=== PATIENT | male | born 1985 ===

== ENCOUNTER 2021-10-04 21:44 | Emergency (ER) | payer SELFPAY ==
[2021-10-05] MEDS ORDERED: LORazepam 2 MG/ML VIAL ONE (03:00)
[2021-10-05] MEDS ORDERED: HALOPERIDOL LACTATE 5 MG/1 ML INJ ONE (03:00)
[2021-10-05] MEDS ORDERED: diphenhydrAMINE 50 MG/ML VIAL ONE (03:00)
[2021-10-05] MEDS ORDERED: diphenhydrAMINE 50 MG/ML VIAL IM STA (03:01)
[2021-10-05] MEDS: LORazepam 2 MG/ML VIAL IM PRN ×2 (03:05→10:29)
[2021-10-05] MEDS: HALOPERIDOL LACTATE 5 MG/1 ML INJ IM PRN ×2 (03:05→10:29)
--- NOTE | 2021-10-05 03:05 | Emergency Department Report ---
ED General Adult HPI - General Chief complaint: Psych Stated complaint: Leave me alone Time Seen by Provider: 10/05/21 03:00 Source: patient, RN notes reviewed Mode of arrival: Ambulatory Limitations: Other (Acute psychosis) - History of Present Illness Initial comments: The patient was evaluated in the emergency department for symptoms described in the history of present illness. He/she was evaluated in the context of the global COVID-19 pandemic, which necessitated consideration that the patient might be at risk for infection with the virus that causes COVID-19. Institutional protocols and algorithms that pertain to the evaluation of patients at risk for COVID-19 are in a state of rapid change based on information released by regulatory bodies including the CDC and federal and state organizations. These policies and algorithms were followed during the patient's care in the emergency department. Please note that these policies, procedures and recommendations changed on a rapid basis. This is a 36-year-old gentleman. He presents to the ER acutely psychotic. He is saying "f*uck everything." He denies physical pain. He does not answer questions about homicidality or suicidality. He will not answer questions about hallucinations. He is disorganized, rambling, agitated, and appears to be responding to internal stimuli. He is not accompanied by friends or family at this time for collateral information or additional information. Patient is psychotic, and not able to describe qualitative nature of symptoms - Related Data Allergies Allergy/AdvReac Type Severity Reaction Status Date / Time No Known Allergies Allergy Verified 10/05/21 01:08 ED Review of Systems ROS: Stated complaint: MENTAL EVAL Other details as noted in HPI ED Physical Exam - General Limitations: Other (Acute psychosis) General appearance: other (Patient is agitated) - Head Head exam: Present: atraumatic, normocephalic - Eye Eye exam: Present: normal appearance, EOMI. Absent: nystagmus - ENT ENT exam: Present: normal exam, normal orophraynx, mucous membranes moist, normal external ear exam - Neck Neck exam: Present: normal inspection, full ROM. Absent: tenderness, meningismus - Respiratory Respiratory exam: Present: normal lung sounds bilaterally. Absent: respiratory distress, wheezes, rales, rhonchi, stridor, decreased breath sounds - Cardiovascular Cardiovascular Exam: Present: regular rate, normal rhythm, normal heart sounds. Absent: bradycardia, tachycardia, irregular rhythm, systolic murmur, diastolic murmur, rubs, gallop - GI/Abdominal GI/Abdominal exam: Present: soft. Absent: distended, tenderness, guarding, rebound, rigid, pulsatile mass - Rectal Rectal exam: Present: deferred - Extremities Exam Extremities exam: Present: normal inspection, full ROM, other (2+ pulses noted in the bilateral upper and lower extremities. There is no palpable cord. negative Homans sign. Muscular compartments are soft. The pelvis is stable.). Absent: pedal edema, calf tenderness - Back Exam Back exam: Present: normal inspection, full ROM. Absent: tenderness, CVA tenderness (R), CVA tenderness (L), paraspinal tenderness, vertebral tenderness - Neurological Exam Neurological exam: Present: alert, normal gait, other (There is no facial droop. The tongue is midline. EOMI. 5 out of 5 strength in 4 extremities) - Psychiatric Psychiatric exam: Present: agitated - Skin Skin exam: Present: warm, dry, intact, normal color. Absent: rash ED Course Vital Signs 10/05/21 10/05/21 01:05 03:37 Temperature 98.2 F Pulse Rate 112 H Respiratory 20 Rate Blood Pressure 143/89 O2 Sat by Pulse 98 100 Oximetry - Reevaluation(s) Reevaluation #1: 10/05/21 04:20 Differential diagnosis, include but not limited to: Psychosis, medical clearance for psychiatric placement, electrolyte derangement, thyroid derangement Assessment and plan: 36-year-old gentleman, with reassuring vital signs with exception of minimal tachycardia which is improving, who is presenting with acute psychosis. His physical examination is noncontributory. Laboratory studies are unremarkable. He is placed on a 1013. UA, drug screen, and COVID swab pending. The emergency room will follow along as the patient provides these. A psychiatric consultation is requested. At this point in time, the patient does not appear to have an immediate medical contraindication to psychiatric admission, evaluation, consultation and placement ED Medical Decision Making - Lab Data Result diagrams: 10/05/21 03:09 10/05/21 03:09 Vital Signs 10/05/21 10/05/21 01:05 03:37 Temperature 98.2 F Pulse Rate 112 H Respiratory 20 Rate Blood Pressure 143/89 O2 Sat by Pulse 98 100 Oximetry Lab Results 10/05/21 10/05/21 10/05/21 Range/Units 03:09 03:09 03:09 WBC 6.6 (4.5-11.0) K/mm3 RBC 4.61 (3.65-5.03) M/mm3 Hgb 13.2 (11.8-15.2) gm/dl Hct 40.7 (35.5-45.6) % MCV 88 (84-94) fl MCH 29 (28-32) pg MCHC 33 (32-34) % RDW 14.4 (13.2-15.2) % Plt Count 245 (140-440) K/mm3 Sodium 139 (137-145) mmol/L Potassium 3.8 (3.6-5.0) mmol/L Chloride 102.2 (98-107) mmol/L Carbon Dioxide 27 (22-30) mmol/L Anion Gap 14 mmol/L BUN 15 (9-20) mg/dL Creatinine 0.9 (0.8-1.3) mg/dL Estimated GFR > 60 ml/min BUN/Creatinine Ratio 17 % Glucose 128 H (75-100) mg/dL Calcium 9.2 (8.4-10.2) mg/dL Total Bilirubin 0.70 (0.1-1.2) mg/dL AST 14 (5-40) units/L ALT 11 (7-56) units/L Alkaline Phosphatase 64 (35-129) units/L Total Protein 7.6 (6.3-8.2) g/dL Albumin 4.6 (3.9-5) g/dL Albumin/Globulin Ratio 1.5 % TSH 0.979 (0.270-4.200) mlU/mL Salicylates (2.8-20.0) mg/dL Acetaminophen (10.0-30.0) ug/mL Valproic Acid (50-100) ug/mL [place] (0.0-1.2) mmol/L Plasma/Serum Alcohol (0-0.07) % 10/05/21 10/05/21 10/05/21 Range/Units 03:09 03:09 03:09 WBC (4.5-11.0) K/mm3 RBC (3.65-5.03) M/mm3 Hgb (11.8-15.2) gm/dl Hct (35.5-45.6) % MCV (84-94) fl MCH (28-32) pg MCHC (32-34) % RDW (13.2-15.2) % Plt Count (140-440) K/mm3 Sodium (137-145) mmol/L Potassium (3.6-5.0) mmol/L Chloride (98-107) mmol/L Carbon Dioxide (22-30) mmol/L Anion Gap mmol/L BUN (9-20) mg/dL Creatinine (0.8-1.3) mg/dL Estimated GFR ml/min BUN/Creatinine Ratio % Glucose (75-100) mg/dL Calcium (8.4-10.2) mg/dL Total Bilirubin (0.1-1.2) mg/dL AST (5-40) units/L ALT (7-56) units/L Alkaline Phosphatase (35-129) units/L Total Protein (6.3-8.2) g/dL Albumin (3.9-5) g/dL Albumin/Globulin Ratio % TSH (0.270-4.200) mlU/mL Salicylates < 0.3 L (2.8-20.0) mg/dL Acetaminophen 5.0 L (10.0-30.0) ug/mL Valproic Acid < 2.8 L (50-100) ug/mL [place] 0.1 (0.0-1.2) mmol/L Plasma/Serum Alcohol < 0.01 (0-0.07) % Critical care attestation.: If time is entered above; I have spent that time in minutes in the direct care of this critically ill patient, excluding procedure time. ED Disposition Clinical Impression: Acute psychosis, Medical clearance for psychiatric admission Disposition: [address] [place] [address] Is pt being admited?: No Does the pt Need Aspirin: No Condition: Good
[2021-10-05 03:26] LABS: Hematocrit 40.7 % (35.5-45.6); Hemoglobin 13.2 gm/dl (11.8-15.2); Mean Corpuscular HGB Conc 33 % (32-34); Mean Corpuscular Volume 88 fl (84-94); Platelet Count 245 K/mm3 (140-440); Red Blood Count 4.61 M/mm3 (3.65-5.03); Red Cell Distribution Width 14.4 % (13.2-15.2)
[2021-10-05 03:45] LABS: Alanine Aminotransferase 11 units/L (7-56); Albumin 4.6 g/dL (3.9-5); BUN/Creatinine Ratio 17; Blood Urea Nitrogen 15 mg/dL (9-20); Calcium 9.2 mg/dL (8.4-10.2); Hemolysis Index 6
[2021-10-05 08:57] LABS: Benzodiazepines Screen,Urine Negative; Methadone Screen,Urine Negative; Opiate Screen,Urine Negative
[2021-10-05 09:10] LABS: Amphetamine Screen,Urine Positive; Cannabinoid Screen,Urine Positive; Cocaine Screen,Urine Positive
[2021-10-05 09:19] LABS: Mucus,Urine 3+ /HPF
[2021-10-05 09:33] LABS: Bilirubin,Urine Negative (Negative); Blood,Urine Negative (Negative); Color,Urine Yellow (Yellow); Protein,Urine <30 mg dL mg/dL (Negative); Urobilinogen,Urine < 2.0 mg/dL (<2.0)
--- NOTE | 2021-10-05 12:30 | Event Note ---
Date: 10/05/21 Pt's chart reviewed. VSS. Pt assessesed by me independently. He is calm, cooperative. He denies any complaints at this time. He does not appear to be in any extremis.
--- NOTE | 2021-10-05 14:48 | Consultation ---
History of Present Illness - Reason for Consult Consult date: 10/05/21 Reason for consult: MHE - History of Present Psychiatric Illness HPI 36 Year old male seen today in the ER. Patient states that " I was lied to" " Give me my meds and let me go back to [place]". Patient observed to be hyper verbal and aggressive towards staff. Patient denies any SI/HI/AVH . Patient has a past dx of Schizophrenia and admits to having been off his medications for the past month.Patients lab shows illicit drugs. Patient had to be given PRN while i was there. Patient will be admitted for inpatient psychiatry evaluation and medication adjustment. PAST PSYCHIATRIC HISTORY: Diagnoses: Schizophrenia Suicide attempts or Self-harm behavior: Yes Prior psychiatric hospitalizations; Yes Substance Abuse history:Yes Previous psychiatric medications tried: Yes Outpatient treatment: PAST MEDICAL HISTORY: Family Psychiatric History None reported or documented SOCIAL HISTORY Marital Status:Single Living Arrangements: With Aunt Employment Status: disability Access to guns/weapons: Denies Education: History of Abuse: Legal History: REVIEW OF SYSTEMS Constitutional: Negative for weight loss ENT: Negative for stridor Respiratory: Negative for cough or hemoptysis All other systems reviewed and are negative Diagnoses:Schizophrenia Treatment Plan Patient will be admitted for inpatient psychiatric evaluation, medication adjustment and close monitoring The patient's behavior, mood, sleep and appetite will be closely monitored. Patient will be enrolled in individual and group therapeutic sessions and encouraged to attend. Patient will be provided with a safe and structured environment. Patient's physical health needs will be addressed by the Hospitalist. Hospita list Consulted Labs including CBC, CMP, Lipid profile and Hemoglobin A1C ordered Social Assessment will be completed and the It Manager will work with patient and family to ensure a suitable and safe disposition Medication adjustment will be made as clinically indicated Usual Wellness Restorationism/Preservation: - Start Trazodone 50 mg po QHS The patient agreed on the treatment plan, understood the risk, benefit, alternative treatment, potential consequence of no treatment, and gave informed consent. Medications and Allergies Allergies Allergy/AdvReac Type Severity Reaction Status Date / Time No Known Allergies Allergy Verified 10/05/21 01:08 Active Meds: Active Medications Haloperidol Lactate (Haloperidol Lactate 5 Mg/1 Ml Inj) 5 mg IM Q6HR PRN PRN Reason: Agitation Last Admin: 10/05/21 10:29 Dose: 5 mg Lorazepam (Lorazepam 2 Mg/Ml Vial) 2 mg IM Q4HR PRN PRN Reason: Agitation Last Admin: 10/05/21 10:29 Dose: 2 mg Mental Status Exam - Vital signs Last Vital Signs Temp 98.0 F 10/05/21 07:39 Pulse 78 10/05/21 07:39 Resp 18 10/05/21 07:39 BP 119/75 10/05/21 07:39 Pulse Ox 100 10/05/21 10:33 Results Result Diagrams: 10/05/21 03:09 10/05/21 03:09 Abnormal lab results 10/05/21 10/05/21 10/05/21 Range/Units 03:09 03:09 03:09 Glucose 128 H (75-100) mg/dL Salicylates < 0.3 L (2.8-20.0) mg/dL Acetaminophen 5.0 L (10.0-30.0) ug/mL Valproic Acid < 2.8 L (50-100) ug/mL All other labs normal.
[2021-10-05] MEDS: traZODone 50 MG TAB PO SCH (22:08)
[2021-10-06] MEDS: HALOPERIDOL LACTATE 5 MG/1 ML INJ IM PRN (07:45)
--- NOTE | 2021-10-06 12:02 | Event Note ---
Date: 10/06/21 S: Patient became verbally aggressive and required Haldol. Otherwise no events reported overnight O: Vital Signs - 8 hr 10/06/21 10/06/21 06:16 08:57 Temperature 97.7 F Pulse Rate 86 Respiratory 18 Rate Blood Pressure 140/100 [Left] O2 Sat by Pulse 98 99 Oximetry A: Schizophrenia P: Inpatient psych/1013
--- NOTE | 2021-10-06 12:54 | Progress Note ---
Subjective - Reason for Consult Reason for consult: MHE - Chief Complaint Chief complaint: Patient seen today. Patient states that he "needs my meds".Patient still hyper verbal and confused. Patient states that he slept okay and his appetite is good. Patient currently denies any SI/HI/AVH at this time. Patient waiting on placement. Will continue to follow. Mental Status Exam - Vital signs Last Vital Signs Temp 97.7 F 10/06/21 08:57 Pulse 86 10/06/21 08:57 Resp 18 10/06/21 08:57 BP 140/100 10/06/21 08:57 Pulse Ox 99 10/06/21 12:20
[2021-10-06] MEDS: LORazepam 2 MG/ML VIAL IM PRN (13:50)
[2021-10-06] MEDS: traZODone 50 MG TAB PO SCH (21:57)
[2021-10-07] MEDS: HALOPERIDOL LACTATE 5 MG/1 ML INJ IM PRN (08:11)
--- NOTE | 2021-10-07 12:33 | Event Note ---
Date: 10/07/21 S: Patient continues to get upset and verbally abusive stating that he wants to leave the hospital. Patient required medication. Patient was tachycardic while he was upset. O: Vital Signs - 8 hr 10/07/21 09:52 Temperature 98.5 F Pulse Rate 123 H Respiratory 18 Rate Blood Pressure 145/105 [Left] O2 Sat by Pulse 98 Oximetry E: Schizophrenia P: Awaiting inpatient psych
--- NOTE | 2021-10-07 15:57 | Progress Note ---
Subjective - Reason for Consult Reason for consult: MHE - Chief Complaint Chief complaint: DATE SEEN: 10/07/2021 patient seen today. Patient states that he is "stable, just need my meds". Patient still verbally aggressive towards staff and was given prn today. Patient denies SI/HI/AVH at this time. Patient seen today. Patient states that he "needs my meds".Patient still hyper verbal and confused. Patient states that he slept okay and his appetite is good. Patient currently denies any SI/HI/AVH at this time. Patient waiting on placement. Will continue to follow. Mental Status Exam - Vital signs Last Vital Signs Temp 98.5 F 10/07/21 09:52 Pulse 123 H 10/07/21 09:52 Resp 18 10/07/21 09:52 BP 145/105 10/07/21 09:52 Pulse Ox 98 10/07/21 09:52
[2021-10-07] MEDS: traZODone 50 MG TAB PO SCH (22:31)
--- NOTE | 2021-10-08 10:50 | Progress Note ---
Subjective - Reason for Consult Reason for consult: MHE - Chief Complaint Chief complaint: DATE SEEN: 10/08/2021 Patient seen today. Patient states that he is feeling okay. Patient denies any SI/HI/AVH at this time. Patient will be discharged from psych point of view and 1013 rescinded. DATE SEEN: 10/07/2021 patient seen today. Patient states that he is "stable, just need my meds". Patient still verbally aggressive towards staff and was given prn today. Patient denies SI/HI/AVH at this time. Patient seen today. Patient states that he "needs my meds".Patient still hyper verbal and confused. Patient states that he slept okay and his appetite is good. Patient currently denies any SI/HI/AVH at this time. Patient waiting on placement. Will continue to follow. Mental Status Exam - Vital signs Last Vital Signs Temp 98.5 F 10/07/21 09:52 Pulse 123 H 10/07/21 09:52 Resp 18 10/07/21 09:52 BP 145/105 10/07/21 09:52 Pulse Ox 98 10/07/21 22:41
[2021-10-08 12:31] VITALS: BP 138/92
--- NOTE | 2021-10-08 12:36 | Emergency Department Report ---
Blank Doc - Documentation Documentation: Chart reviewed 36-year-old male has been cleared by mental health for discharge since patient does not complain of suicidal or homicidal ideation at this time. Patient is COVID-positive UDS positive for amphetamine, cocaine, and marijuana Tachycardia improved Mental health nurse practitioner apparently called in patient's meds to pharmacy which include Risperdal 1 mg twice daily Trazodone 100 mg nightly Cogentin 1 mg twice daily Zofran 100 mg daily Haldol 1 mg 3 times daily She has been asked to include this in her note Patient will be discharged
--- NOTE | 2021-10-08 14:01 | Progress Note ---
Subjective - Reason for Consult Reason for consult: MHE - Chief Complaint Chief complaint: Patients home prescription called in to [facility] pharmacy today. Haldol 1mg PO TID Zoloft 100mg PO DAILY Cogentin 1mg PO BID Risperidone 1MG PO BID Trazadone 100mg po QHS DATE SEEN: 10/08/2021 Patient seen today. Patient states that he is feeling okay. Patient denies any SI/HI/AVH at this time. Patient will be discharged from psych point of view and 1013 rescinded. DATE SEEN: 10/07/2021 patient seen today. Patient states that he is "stable, just need my meds". Patient still verbally aggressive towards staff and was given prn today. Patient denies SI/HI/AVH at this time. Patient seen today. Patient states that he "needs my meds".Patient still hyper verbal and confused. Patient states that he slept okay and his appetite is good. Patient currently denies any SI/HI/AVH at this time. Patient waiting on placement. Will continue to follow. Mental Status Exam - Vital signs Last Vital Signs Temp 98.7 F 10/08/21 12:30 Pulse 89 10/08/21 12:30 Resp 18 10/08/21 12:30 BP 138/92 10/08/21 12:30 Pulse Ox 97 10/08/21 12:30
== END 2021-10-08 13:12 | disposition home or self-care (01) ==
LOC: ED 21:44
DX: F23 Brief psychotic disorder (principal); Z13.30 Encounter for screening examination for mental health and behavioral disorders, unspecified; Z79.899 Other long term (current) drug therapy; Z20.822 Contact with and (suspected) exposure to COVID-19
CPT/HCPCS: 36415; 80053; 80164; 80178; 80307; 81001; 84443; 85027; 96372; 99284; J1200; J1630; J2060; U0003; 80320; 99285; G0480